=== PATIENT | female | born 1970 | race Two or more races ===

== ENCOUNTER 2016-09-01 17:14 | Emergency (ER) | payer SELFPAY ==
[2016-09-01] MEDS ORDERED: IOPAMIDOL 370 (76%) 100 ML VIAL IV ONE (17:15)
[2016-09-01 18:08] LABS: ABSOLUTE NEUTROPHIL COUNT 5.3 K/mm3 (1.8-7.7); BASO % 0.1 % (0.2-1.0); EOS # 0.4 (0.0-0.5); EOS % 5.4 % (0.9-2.9); HEMATOCRIT 29.1 % (37.0-47.0); HEMOGLOBIN 8.5 gm/l (12.0-16.0); IMM NEUT% 0.3 % (0-1); LYMPH # 1.2 (1.0-4.8); LYMPH % 16.8 % (15-45); MEAN CELL VOLUME 76.4 fl (81.0-99.0); MEAN CORPUSCULAR HEMOGLOBIN 22.3 pg (27.0-31.0); MEAN CORPUSCULAR HGB CONC 29.2 g/dl (33.0-37.0); MONO # 0.4 (0.0-0.8); MONO % 5.1 % (4-12); NEUT % 72.3 % (43-75); PLATELET COUNT 262 K/mm3 (130-400); RED CELL DISTRIBUTION WIDTH 16.9 % (11.5-14.5)
[2016-09-01 18:25] LABS: ALB/GLOB RATIO 0.7 (>1.0); ALBUMIN 3.5 gm/dL (3.5-5.7); CALCIUM 8.5 mg/dL (8.6-10.3)
[2016-09-01] MEDS ORDERED: CEFTRIAXONE 1 GRAM DUPLEX 50 ML IV ONE (21:18)
[2016-09-01] MEDS ORDERED: VANCOMYCIN HCL 1.75 G in SODIUM CHLORIDE 0.9% 500 ML IV ONE (21:30)
[2016-09-01] MEDS ORDERED: ACETAMINOPHEN 500 MG TABLET ONE (22:11)
--- NOTE | 2016-09-02 08:00 | CT ---
ORBIT, TEMP BONES W/CON COMPARISON: None. HISTORY: Right eye infection, swollen and red. Technique: Intravenous injection 100 mL Isovue-370. Using a [employer] [address] scanner, images were obtained through the orbits. An automated dose reduction technique was used to minimize patient radiation dose. Dose information: CTDIvol (mGy): 28.80 DLP(mGycm): 441.10 FINDINGS: Right orbit Mass: None. Globe: Normal. Bony orbit: Normal. Pre-septal soft tissues: Diffuse superficial soft tissue swelling. Optic nerve and complex: Normal. Extraocular Muscles: Normal. Lacrimal apparatus: 2.1 x 1.2 x 1.4 cm rim-enhancing fluid collection communicating with the opening of the right naso-lacrimal duct. Orbital apex: Normal. Left orbit Mass: None. Globe: Normal. Bony orbit: Normal. Pre-septal soft tissues: Normal. Optic nerve and complex: Normal. Extraocular Muscles: Normal. Lacrimal apparatus: Normal. Orbital apex: Normal. Other findings Brain: Normal. Cavernous sinuses: Normal. Paranasal sinuses: Mucosal thickening of both maxillary sinuses, the left and right ethmoid air cells, and the frontal sinuses. Normal sphenoid sinuses. Nasal passages: Soft tissue swelling of the left middle meatus. IMPRESSION: 1. 2.1 x 1.2 x 1.4 cm abscess medial right orbit, evidence of dacryocystitis, with superficial periorbital cellulitis. 2. Multifocal paranasal sinus mucosal disease. Preliminary report by [facility] radiologist Leo Brenner MD 09/01/2016 at 19:40
== END 2016-09-01 22:33 | disposition short-term general hospital (02) ==
LOC: ED 17:14
DX: H04.321 Acute dacryocystitis of right lacrimal passage (principal); L03.213 Periorbital cellulitis; F79 Unspecified intellectual disabilities; E11.9 Type 2 diabetes mellitus without complications
CPT/HCPCS: 85025; 87070; 80053; 87205; 70481; 99285 ×2; 96365; 96367; A9270; J7040; Q9967; J3370; J0696